=== PATIENT | male | born 1990 | race American Indian/Alaskan Native ===

== ENCOUNTER 2018-01-10 18:28 | Emergency (ER) | payer SELFPAY ==
[2018-01-10 18:36] VITALS: BP 125/86
[2018-01-10] MEDS ORDERED: NACL 0.9% 1000 ML 1,000 ML IV ONE (18:36)
[2018-01-10 18:51] LABS: Basophils % (Auto) 0.4 % (0.0-1.8); Eosinophils % (Auto) 0.1 % (0.0-4.3); Hematocrit 39.7 % (35.5-45.6); Hemoglobin 14.2 gm/dl (11.8-15.2); Lymphocytes # (Auto) 0.7 K/mm3 (1.2-5.4); Lymphocytes % (Auto) 6.8 % (13.4-35.0); Mean Corpuscular HGB Conc 36 % (32-34); Mean Corpuscular Hemoglobin 32 pg (28-32); Mean Corpuscular Volume 89 fl (84-94); Monocytes # (Auto) 0.3 K/mm3 (0.0-0.8); Platelet Count 241 K/mm3 (140-440); Red Blood Count 4.47 M/mm3 (3.65-5.03); Red Cell Distribution Width 12.9 % (13.2-15.2)
[2018-01-10 18:58] LABS: Bilirubin,Urine NEG (Negative); Blood,Urine LG (Negative); Color,Urine Yellow (Yellow); Mucus,Urine 1+ /HPF; Urobilinogen,Urine < 2.0 mg/dL (<2.0)
[2018-01-10 19:02] LABS: RBC,Urine > 182.0 /HPF (0.0-6.0)
[2018-01-10 19:09] LABS: Alanine Aminotransferase 19 units/L (7-56); Albumin 4.4 g/dL (3.9-5); BUN/Creatinine Ratio 9; Blood Urea Nitrogen 9 mg/dL (9-20); Calcium 9.6 mg/dL (8.4-10.2); Hemolysis Index 1; Lipase 17 units/L (13-60)
[2018-01-10] MEDS ORDERED: NORCO 5/325 PO ONE (23:05)
[2018-01-10] MEDS ORDERED: ZOFRAN ODT ONE (23:05)
[2018-01-10] MEDS ORDERED: ZOFRAN ODT PO ONE ×2 (23:05→23:55)
[2018-01-10] MEDS ORDERED: NORCO 5/325 ONE (23:05)
[2018-01-10] MEDS ORDERED: ROCEPHIN IM ONE (23:35)
--- NOTE | 2018-01-10 23:40 | Emergency Department Report ---
ED Male HPI - General Chief complaint: Abdominal Pain Stated complaint: FEVER/GROWING SHARP PAINS Time Seen by Provider: 01/10/18 23:33 Source: patient Mode of arrival: Ambulatory Limitations: No Limitations - History of Present Illness Initial comments: Patient 27-year-old -Citizen Of [place] male presents with suprapubic pain denies flow problem penile discharge or hematuria denies STD denies flank pain denies frequency or urgency no fever chills no nausea vomiting patient is adamant that he does not have STD, nor kidney stones states UTI history of UTI refuses CT scan or ultrasound to rule out kidney infection or pyelonephritis Complaint: dysuria Onset/Timin -: week(s) Location: abdomen Radiation: none Severity: mild Consistency: intermittent Improves with: none Worsens with: urination denies other symptoms - Related Data Sexually active: No Previous Rx's Medication Instructions Recorded Last Taken Type Ciprofloxacin HCl [Cipro] 500 mg PO BID #20 tablet 01/10/18 Unknown Rx Allergies Allergy/AdvReac Type Severity Reaction Status Date / Time No Known Allergies Allergy Verified 01/10/18 23:09 ED Review of Systems ROS: Stated complaint: FEVER/GROWING SHARP PAINS Other details as noted in HPI Constitutional: denies: chills, fever Eyes: denies: eye pain, eye discharge, vision change ENT: denies: ear pain, throat pain Respiratory: denies: cough, shortness of breath, wheezing Cardiovascular: denies: chest pain, palpitations Endocrine: no symptoms reported Gastrointestinal: abdominal pain. denies: nausea, diarrhea, constipation, hematemesis, melena, hematochezia Genitourinary: as per HPI, dysuria. denies: urgency, frequency, hematuria, discharge, testicular pain, testicular mass Musculoskeletal: denies: back pain, joint swelling, arthralgia Skin: denies: rash, lesions Neurological: denies: headache, weakness, paresthesias Psychiatric: denies: anxiety, depression Hematological/Lymphatic: denies: easy bleeding, easy bruising ED Past Medical Hx - Past Medical History Previous Medical History?: Yes - Surgical History Past Surgical History?: No - Social History Smoking Status: Current Every Day Smoker Substance Use Type: Alcohol - Medications Home Medications: Home Medications Medication Instructions Recorded Confirmed Last Taken Type Ciprofloxacin HCl [Cipro] 500 mg PO BID #20 tablet 01/10/18 Unknown Rx ED Physical Exam - General Limitations: No Limitations General appearance: alert, in no apparent distress - Head Head exam: Present: atraumatic, normocephalic - Eye Eye exam: Present: PERRL - ENT ENT exam: Present: mucous membranes moist - Neck Neck exam: Present: normal inspection - Respiratory Respiratory exam: Present: normal lung sounds bilaterally. Absent: respiratory distress - Cardiovascular Cardiovascular Exam: Present: regular rate - GI/Abdominal GI/Abdominal exam: Present: soft. Absent: distended, rigid, mass, bruit, hernia - Rectal Rectal exam: Present: deferred - Extremities Exam Extremities exam: Present: normal inspection - Back Exam Back exam: Present: normal inspection - Neurological Exam Neurological exam: Present: alert, oriented X3 - Psychiatric Psychiatric exam: Present: normal affect, normal mood - Skin Skin exam: Present: warm, dry, intact, normal color. Absent: rash ED Course Vital Signs 01/10/18 18:34 Temperature 98.8 F Pulse Rate 88 Respiratory 18 Rate Blood Pressure 125/86 O2 Sat by Pulse 100 Oximetry ED Medical Decision Making - Lab Data Result diagrams: 01/10/18 18:38 01/10/18 18:38 - Medical Decision Making UA noted for proteins WBCs and rbc's patient refuses to discuss CT scan rule out pyelonephritis states not STD I have attempted further workup on 3 occasions and Again patient is adamant no STD no renal stones state this is UTI patient treated for UTI Rocephin 1 g IM to DC to home with Cipro 500 mg by mouth twice a day for 10 days patient given strict instructions to return to ED should symptoms worsen or unable to void patient verbalizes understanding and agreement same will be DC'd home in stable condition at this time vital signs are stable there is no fever no nausea vomiting Critical care attestation.: If time is entered above; I have spent that time in minutes in the direct care of this critically ill patient, excluding procedure time. ED Disposition Clinical Impression: UTI (urinary tract infection) Qualifiers: Urinary tract infection type: acute cystitis Hematuria presence: without hematuria Qualified Code(s): N30.00 - Acute cystitis without hematuria Disposition: DC-01 TO HOME OR SELFCARE Is pt being admited?: No Does the pt Need Aspirin: No Condition: Stable Instructions: Urinary Tract Infection in Men (ED) Additional Instructions: return to ed if unable to void or symptoms worsen Prescriptions: Ciprofloxacin HCl [Cipro] 500 mg PO BID #20 tablet Referrals: [facility] [Outside] - 3-5 Days Forms: Work/School Release Form(ED) Time of Disposition: 23:37
== END 2018-01-10 23:59 | disposition home or self-care (01) ==
LOC: ED 18:28
DX: N39.0 Urinary tract infection, site not specified (principal); F17.200 Nicotine dependence, unspecified, uncomplicated
CPT/HCPCS: 36415; 80053; 81001; 83690; 85025; 96372; 99283; J0696; Q0162